=== PATIENT | male | born 1995 | race Caucasian/White ===

== ENCOUNTER 2024-01-12 18:29 | Emergency (ER) | payer MEDICAID ==
[~2024-01-12] VITALS: Ht 175.3 cm; Wt 72.6 kg
[2024-01-12 18:43] VITALS: BP 122/73; PULSE 100; RESP 16; TEMP 97.3; O2SAT 98
[2024-01-12 21:18] VITALS: BP 128/81; PULSE 100; RESP 17; TEMP 97.3; O2SAT 99
== END 2024-01-12 21:28 | disposition home or self-care (01) ==
LOC: MED 18:29
DX: T40.2X1A Poisoning by other opioids, accidental (unintentional), initial encounter (principal); Y92.89 Other specified places as the place of occurrence of the external cause
CPT/HCPCS: 99283